=== PATIENT | female | born 1995 | race Caucasian/White ===

== ENCOUNTER 2017-02-06 00:23 | Emergency (ER) | payer OTHER ==
[2017-02-06] MEDS ORDERED: Acetaminophen ADULT LIQ* 650 MG/20.3 ML UDC PO ONE (01:22)
[2017-02-06] MEDS ORDERED: Amoxicillin SUSP* 400 MG/5 ML ORAL.SOLN 50 ML BTL PO ONE (01:22)
--- NOTE | 2017-02-06 01:28 | ED ---
Throat Pain/Nasal Congestion - HPI Summary HPI Summary: 22F presents with right ear pain today. She states she woke up with the pain. She admits to sinus discharge. She is also complaining of a sore throat. She denies any cough, fever, abdominal pain. She has not taken anything for her pain and states it is a 10/10. She does not have a history of ear infections and she has not been on any antibiotics recently. - History of Current Complaint Chief Complaint: EDEarPain Time Seen by Provider: 02/06/17 01:01 - Allergies/Home Medications Allergies/Adverse Reactions: Allergies Allergy/AdvReac Type Severity Reaction Status Date / Time No Known Allergies Allergy Verified 02/06/17 00:32 PMH/Surg Hx/FS Hx/Imm Hx Endocrine/Hematology History: Denies: Hx Anticoagulant Therapy Psychiatric History: Reports: Hx Anxiety, Hx Depression Infectious Disease History: No Infectious Disease History: Denies: Traveled Outside the [place] in Last 30 Days - Family History Known Family History: Positive: Other - dad- CVA; arthritis; mom- cancer - breast, uterine, ovarian - Social History Alcohol Use: Weekly Hx Substance Use: Yes - "pills", cocaine, meth, marijuana Substance Use Type: Reports: None Smoking Status (MU): Current Every Day Smoker Review of Systems Negative: Fever Positive: Sore Throat, Ear Ache, Nasal Discharge Negative: Chest Pain Negative: Shortness Of Breath, Cough Negative: Abdominal Pain All Other Systems Reviewed And Are Negative: Yes Physical Exam Triage Information Reviewed: Yes Vital Signs On Initial Exam: Initial Vitals Temp Pulse Resp BP Pulse Ox 99.3 F 119 20 117/81 99 02/06/17 00:28 02/06/17 00:28 02/06/17 00:28 02/06/17 00:02/06/17 00:28 Vital Signs Reviewed: Yes Appearance: Positive: Pain Distress Skin: Positive: Warm, Dry Head/Face: Positive: Normal Head/Face Inspection Eyes: Positive: Normal, Conjunctiva Clear ENT: Positive: Pharynx normal, TM bulging - right, TM red - right, Other - uvula midline, soft palate rises symmetrically. Negative: Trismus Neck: Positive: Supple, Nontender, No Lymphadenopathy Respiratory/Lung Sounds: Positive: Clear to Auscultation, Breath Sounds Present Cardiovascular: Positive: Normal, RRR Diagnostics - Vital Signs Vital Signs Temp Pulse Resp BP Pulse Ox 02/06/17 01:22 98.1 F 60 18 132/88 02/06/17 00:28 99.3 F 119 20 117/81 99 - Laboratory Lab Statement: Any lab studies that have been ordered have been reviewed, and results considered in the medical decision making process. EENT Course/Dx - Course Course Of Treatment: 22F presents with right ear pain starting this night. denies any fever. no history of ear infection. also complain of sore throat. on exam TM bulging and red in right ear. throat looks normal, had tonsils removed. will treat with amoxicillin. patient understands and agrees with plan - Differential Diagnoses Differential Diagnoses: Otitis Externa, Otitis Media, Pharyngitis - Diagnoses Provider Diagnoses: Otitis media Discharge - Discharge Plan Condition: Stable Disposition: HOME Prescriptions: Amoxicillin SUSP 250 MG* [Amoxicillin SUSP *] 500 mg PO BID #190 ml Patient Education Materials: Otitis Media (ED) Referrals: [facility] PHYSICIAN REFERRAL [Outside] Additional Instructions: Take 10 ml (2 teaspoons) twice a day for 10 days, first dose given in ED Take Tylenol or ibuprofen every 6 hours for pain Establish care with primary care physician Return to ED if develop any new or worsening symptoms
[2017-02-06 01:39] VITALS: BP 107/74
== END 2017-02-06 01:35 | disposition home or self-care (01) ==
LOC: ED 00:23
DX: H66.91 Otitis media, unspecified, right ear (principal); F41.9 Anxiety disorder, unspecified; F32.9 Major depressive disorder, single episode, unspecified; F17.200 Nicotine dependence, unspecified, uncomplicated
CPT/HCPCS: 99282; A9270-GY

== ENCOUNTER 2017-06-28 14:26 | Emergency (ER) | payer OTHER ==
[2017-06-28] MEDS ORDERED: NS 0.9% 1000 ML* 1,000 ML IV ONE (15:45)
[2017-06-28 16:31] LABS: Hematocrit 34 % (35-47); Hemoglobin 11.5 g/dl (12.0-16.0); Mean Corpuscular HGB Conc 34 g/dl (31-36); Mean Corpuscular Hemoglobin 30 pg (27-31); Mean Corpuscular Volume 87 fL (80-97); Mean Platelet Volume 8 um3 (7.4-10.4); Red Blood Count 3.89 10^6/ul (4.0-5.4); Red Cell Distribution Width 14 % (10.5-15); White Blood Count 8.9 10^3/ul (3.5-10.8)
[2017-06-28 16:35] LABS: Urine Bilirubin Negative (Negative); Urine Glucose Negative (Negative); Urine Nitrite Negative (Negative)
[2017-06-28 16:46] LABS: Albumin 3.8 g/dL (3.2-5.2); BUN/Creatinine Ratio 17.4 (8-20); EGFR African American 216.5 (>60); EGFR Non-African American 168.3 (>60); Globulin 2.6 g/dL (2-4); Potassium 3.6 mmol/L (3.5-5.0); Total Bilirubin 0.2 mg/dL (0.2-1.0); Total Protein 6.4 g/dL (6.4-8.9)
[2017-06-28 17:39] VITALS: BP 102/64
--- NOTE | 2017-06-28 17:51 | RAD ---
Indication: Lower abdominal cramping. Early unknown dates. Comparison: No relevant prior exams available on the [facility] PACS for comparison. Technique: Transabdominal obstetrical ultrasound. Report: Single intrauterine gestation with 6.49 cm crown-rump length corresponding to 12 weeks 6 days gestation with normal movement and cardiac activity with heart rate measuring 167 bpm. Anterior placenta without suspicious finding. No perigestational hemorrhage evident. Unremarkable 2.5 x 1.5 x 2.2 cm RIGHT and 2.5 x 1.6 x 1.5 cm LEFT maternal ovaries. No extraovarian adnexal region lesions evident. Negative for free pelvic fluid. IMPRESSION: Viable-appearing single intrauterine gestation with estimated gestational age of 12 weeks 6 days based on crown-rump length corresponding with LUTHER (AUA) of January 04, 2018.
--- NOTE | 2017-06-28 18:11 | ED ---
Tanya Patel SooYoung, scribed for Alejandro Harris MD on 06/28/17 at 1526 . 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 Pain is described as intermittent cramping, pressure. A6. She states she has prev miscarried within the first two months. The longest term prior to this one was 8 weeks and 6 days. Denies fever, chills, vaginal discharge, vaginal bleeding. - History of Current Complaint Chief Complaint: EDAbdPain Stated Complaint: 13 WEEKS PRE CRAMPS Time Seen by Provider: 06/28/17 15:14 Hx Obtained From: Patient Onset/Duration: Sudden Onset, Still Present Timing: Constant Severity Initially: Moderate Severity Currently: Moderate Pain Intensity: 7 Pain Scale Used: 0-10 Numeric Location: Suprapubic Associated Signs and Symptoms: Negative: Fever, Vaginal Bleeding, Vaginal Discharge, Other: - neg: chills Allergies/Adverse Reactions: Allergies Allergy/AdvReac Type Severity Reaction Status Date / Time No Known Allergies Allergy Verified 06/28/17 15:13 PMH/Surg Hx/FS Hx/Imm Hx Previously Healthy: No Endocrine/Hematology History: Denies: Hx Anticoagulant Therapy Psychiatric History: Reports: Hx Anxiety, Hx Depression Infectious Disease History: No Infectious Disease History: Denies: Traveled Outside the [place] in Last 30 Days - Family History Known Family History: Positive: Other - dad- CVA; arthritis; mom- cancer - breast, uterine, ovarian - Social History Occupation: Unemployed - OTHER Lives: With Family Alcohol Use: Weekly Hx Substance Use: Yes - "pills", cocaine, meth, marijuana Substance Use Type: Reports: Cocaine, Marijuana, Other - meth, pills Hx Tobacco Use: Yes Smoking Status (MU): Current Every Day Smoker Review of Systems Negative: Fever, Chills Positive: Abdominal Pain Negative: discharge - neg: vaginal discharge, bleeding All Other Systems Reviewed And Are Negative: Yes Physical Exam - Summary Physical Exam Summary: VITAL SIGNS: Reviewed. GENERAL: Patient is a well-developed and nourished female who is lying comfortable in the stretcher. Patient is not in any acute respiratory distress. HEAD AND FACE: Normocephalic and atraumatic. EYES: PERRLA, EOMI x 2, No injected conjunctiva. EARS: Hearing grossly intact. Ear canals and tympanic membranes are WNL. MOUTH: Oropharynx within normal limits. NECK: Supple, trachea is midline, no adenopathy, no JVD. CHEST: Symmetric, no tenderness at palpation LUNGS: Clear to auscultation bilaterally. No wheezing or crackles. CVS: RRR, S1 and S2 present, no murmurs or gallops appreciated. ABDOMEN: Soft, non-tender. No signs of distention. Positive bowel sounds. No rebound, no guarding, and no masses palpated. No abdominal bruit or pulsations. EXTREMITIES: FROM in all major joints, no edema, no cyanosis or clubbing. NEURO: Alert and oriented x 3. No acute neurological deficits. Speech is normal. SKIN: Dry and warm Triage Information Reviewed: Yes Vital Signs On Initial Exam: Initial Vitals Temp Pulse Resp BP Pulse Ox 98.2 F 99 12 115/60 100 06/28/17 14:32 06/28/17 14:32 06/28/17 14:32 06/28/17 14:32 06/28/17 14:32 Vital Signs Reviewed: Yes - [place] Coma Scale Coma Scale Total: 15 Diagnostics - Vital Signs Vital Signs Temp Pulse Resp BP Pulse Ox 06/28/17 14:32 98.2 F 99 12 115/60 100 - Laboratory Lab Results: Lab Results 06/28/17 06/28/17 06/28/17 Range/Units 16:15 16:15 16:15 WBC 8.9 (3.5-10.8) 10^3/ul RBC 3.89 L (4.0-5.4) 10^6/ul Hgb 11.5 L (12.0-16.0) g/dl Hct 34 L (35-47) % MCV 87 (80-97) fL MCH 30 (27-31) pg MCHC 34 (31-36) g/dl RDW 14 (10.5-15) % Plt Count 195 (150-450) 10^3/ul MPV 8 (7.4-10.4) um3 Neut % (Auto) 71.6 (38-83) % Lymph % (Auto) 17.9 L (25-47) % [place] % (Auto) 6.4 (1-9) % Eos % (Auto) 3.8 (0-6) % Baso % (Auto) 0.3 (0-2) % Absolute Neuts (auto) 6.4 (1.5-7.7) 10^3/ul Absolute Lymphs (auto) 1.6 (1.0-4.8) 10^3/ul Absolute Monos (auto) 0.6 (0-0.8) 10^3/ul Absolute Eos (auto) 0.3 (0-0.6) 10^3/ul Absolute Basos (auto) 0 (0-0.2) 10^3/ul Absolute Nucleated RBC 0 10^3/ul Nucleated RBC % 0 Sodium 134 (133-145) mmol/L Potassium 3.6 (3.5-5.0) mmol/L Chloride 106 (101-111) mmol/L Carbon Dioxide 21 L (22-32) mmol/L Anion Gap 7 (2-11) mmol/L BUN 8 (6-24) mg/dL Creatinine 0.46 L (0.51-0.95) mg/dL Est GFR ( Amer) 216.5 (>60) Est GFR (Non-Af Amer) 168.3 (>60) BUN/Creatinine Ratio 17.4 (8-20) Glucose 74 (70-100) mg/dL Calcium 9.0 (8.6-10.3) mg/dL Total Bilirubin 0.20 (0.2-1.0) mg/dL AST 17 (13-39) U/L ALT 9 (7-52) U/L Alkaline Phosphatase 41 (34-104) U/L Total Protein 6.4 (6.4-8.9) g/dL Albumin 3.8 (3.2-5.2) g/dL Globulin 2.6 (2-4) g/dL Albumin/Globulin Ratio 1.5 (1-3) Beta HCG, Quant 95806.00 mIU/mL Urine Color Straw Urine Appearance Clear Urine pH 7.0 (5-9) Ur Specific [place] 1.006 L (1.010-1.030) Urine Protein Negative (Negative) Urine Ketones 1+ H (Negative) Urine Blood Negative (Negative) Urine Nitrate Negative (Negative) Urine Bilirubin Negative (Negative) Urine Urobilinogen Negative (Negative) Ur Leukocyte Esterase Negative (Negative) Urine Glucose Negative (Negative) Result Diagrams: 06/28/17 16:15 06/28/17 16:15 Lab Statement: Any lab studies that have been ordered have been reviewed, and results considered in the medical decision making process. - Ultrasound No standard instances Ultrasound Interpretation: Positive (See Comments) - U/S, IMPRESSION: Viable-appearing single intrauterine gestation with estimated gestational age of 12 weeks 6 days based on crown-rump length corresponding with LUTHER (AUA) of January 04, 2018. ED physician has reviewed this radiology report and agrees Ultrasound Interpretation Completed By: Radiologist Re-Evaluation - Re-Evaluation 1 Re-Evaluation Time: 18:01 Change: Improved Comment: Discussing results with pt. Will consult with OB-METER RECORD CLERK. Abdominal Pain Fem Course/Dx - Course Course Of Treatment: A 22 y/o F who is 13 weeks presents to ED with c/ o suprapubic abd pain onset DEPOT MANAGER. Pain is described as intermittent cramping, pressure. A6. She states she has prev miscarried within the first two months. The longest term prior to this one was 8 weeks and 6 days. Denies fever, chills, vaginal discharge, vaginal bleeding. In the ED course an IV access was obtained. Patient was placed in a tobacco sampler. Patient was started with IV fluids. Labs within normal limits except for slight anemia. C. UA negative for UTI. Pelvic U/S IMPRESSION: Viable-appearing single intrauterine gestation with estimated gestational age of 12 weeks 6 days based on crown-rump length corresponding with LUTHER (AUA) of January 04, 2018. Patient has remained asymptomatic in the ED. I did not perform a pelvic exam nor ordered a Rh factor since patient had no vaginal bleeding. I discussed the case with Dr. Rod who agrees with management and recommends discharge home with F/u with Moses (TECHNOLOGY ADMINISTRATOR) in [place]. I discussed all the findings and test results with the patient. Patient was instructed to return to the emergency room immediately if any of the symptoms return or worsens. Plan of care was discussed with the patient and understands and agrees. All questions were answered at patient satisfaction. There were no further complaints or concerns. - Diagnoses Differential Diagnosis: Positive: Constipation, Ectopic , Ovarian Cyst , Provider Diagnoses: Threatened miscarriage - Provider Notifications Discussed Care Of Patient With: Laney Rod - OB-METER RECORD CLERK Time Discussed With Above Provider: 18:05 Instructed by Provider To: Other - Recommends pt be D/C and f/u with her OB-METER RECORD CLERK Discharge - Discharge Plan Condition: Stable Disposition: HOME Patient Education Materials: Threatened Miscarriage (ED) Referrals: No Primary Care Phys,NOPCP [Primary Care Provider] - [facility] [place] [facility]IAN REFERRAL [Outside] - 3 Days Additional Instructions: Establish and follow-up with a primary care provider in the next 3 days. Please return to the ED if you experience new or worsening symptoms. The documentation as recorded by the Tanya gloria SooYoung accurately reflects the service I personally performed and the decisions made by me, Alejandro Harris MD.
== END 2017-06-28 18:37 | disposition home or self-care (01) ==
LOC: ED 14:26
DX: O20.0 Threatened abortion (principal); Z3A.13 13 weeks gestation of pregnancy; O99.331 Smoking (tobacco) complicating pregnancy, first trimester
CPT/HCPCS: 36415; 76801; 80053; 81003; 84702; 85025; 96360; 99282

== ENCOUNTER 2018-05-28 17:24 | Emergency (ER) | payer OTHER ==
[2018-05-28] MEDS ORDERED: Ketorolac INJ* 60 MG/2 ML VIAL IM ONE (20:18)
[2018-05-28] MEDS ORDERED: predniSONE TAB* 10 MG PO ONE (20:25)
--- NOTE | 2018-05-28 21:16 | ED ---
Upper Extremity Pain - HPI Summary HPI Summary: 26-year-old female presents with bilateral wrist pain for the past month. She states she has carpal tunnel. States she is waiting for surgery for carpal tunnel surgery. She states she has been using an [id number] wrist splint that has not been helping. She was feels numbness and tingling in her fingers. No injury. No fevers. No rash. She states that the pain radiating to her elbow. she has been taking ibuprofen for pain. - History of Current Complaint Chief Complaint: EDExtremityUpper Stated Complaint: BILATERAL ARM PAIN Time Seen by Provider: 05/28/18 18:56 - Allergies/Home Medications Allergies/Adverse Reactions: Allergies Allergy/AdvReac Type Severity Reaction Status Date / Time No Known Allergies Allergy Verified 05/28/18 17:41 PMH/Surg Hx/FS Hx/Imm Hx Endocrine/Hematology History: Denies: Hx Anticoagulant Therapy Cardiovascular History: Denies: Hx Myocardial Infarction Psychiatric History: Reports: Hx Anxiety, Hx Depression Infectious Disease History: No Infectious Disease History: Denies: Traveled Outside the [place] in Last 30 Days - Family History Known Family History: Positive: Other - dad- CVA; arthritis; mom- cancer - breast, uterine, ovarian - Social History Alcohol Use: Occasionally Hx Substance Use: Yes - "pills", cocaine, meth, marijuana Substance Use Type: Reports: None Hx Tobacco Use: Yes Smoking Status (MU): Light Every Day Tobacco Smoker Review of Systems Negative: Fever Negative: Chest Pain Positive: Shortness Of Breath Positive: Myalgia - wrist pain All Other Systems Reviewed And Are Negative: Yes Physical Exam Triage Information Reviewed: Yes Vital Signs On Initial Exam: Initial Vitals Temp Pulse Resp BP Pulse Ox 97.9 F 103 16 120/79 100 05/28/18 17:37 05/28/18 17:37 05/28/18 17:37 05/28/18 17:37 05/28/18 17:37 Vital Signs Reviewed: Yes Appearance: Positive: Well-Appearing Skin: Positive: Warm, Dry Head/Face: Positive: Normal Head/Face Inspection Eyes: Positive: Normal, Conjunctiva Clear ENT: Positive: Pharynx normal Respiratory/Lung Sounds: Positive: Clear to Auscultation, Breath Sounds Present Cardiovascular: Positive: Normal, RRR Musculoskeletal: Positive: Strength/ROM Intact - wrist, Other - tenderness over palmar aspect of wrist bilateral, pos tinels, good pulses, capillary refill<2 secs, sensation grossly intact. Negative: Edema Left, Edema Right Neurological: Positive: Normal Psychiatric: Positive: Normal Diagnostics - Vital Signs Vital Signs Temp Pulse Resp BP Pulse Ox 05/28/18 17:37 97.9 F 103 16 120/79 100 - Laboratory Lab Statement: Any lab studies that have been ordered have been reviewed, and results considered in the medical decision making process. Course/Dx - Course Course Of Treatment: 26-year-old female presents with bilateral wrist pain for the past month. She states she has carpal tunnel. States she is waiting for surgery for carpal tunnel surgery. She states she has been using an over-the- counter wrist splint that has not been helping. She was feels numbness and tingling in her fingers. No injury. No fevers. No rash. She states that the pain radiating to her elbow. she has been taking ibuprofen for pain. On exam neurovascular intact. Full range of motion wrist. Positive Tinel's. Will try a short course of low-dose steroid. Will give prescription for wrist splints. We'll have follow-up with orthopedic. Patient understands agrees with plan. - Diagnoses Differential Diagnosis/HQI/PQRI: Positive: Strain, Sprain, Other - carpel tunnel Provider Diagnoses: Carpal tunnel syndrome Discharge - Sign-Out/Discharge Documenting (check all that apply): Patient Departure - Discharge Plan Condition: Good Disposition: HOME Prescriptions: predniSONE TAB* [Deltasone 20 MG TAB*] 20 mg PO DAILY #13 tab Patient Education Materials: Tendinitis (ED) Referrals: Rosey Biggs NP [Primary Care Provider] - Additional Instructions: Take Tylenol or ibuprofen every 6 hours as needed for pain take steroid once a day for 2 weeks Apply ice, rest, elevate use wrist splints Follow up with ortho Return to ED if develop any new or worsening symptoms - Billing Disposition and Condition Condition: GOOD Disposition: Home
[2018-05-28 22:13] VITALS: BP 119/83
== END 2018-05-28 22:10 | disposition home or self-care (01) ==
LOC: ED 17:24
DX: G56.03 Carpal tunnel syndrome, bilateral upper limbs (principal); F17.200 Nicotine dependence, unspecified, uncomplicated
CPT/HCPCS: 96372; 99282; J1885; J7512

== ENCOUNTER → 2018-09-14 17:23 | Emergency (ER) | payer OTHER ==
[~2018-09-14 17:23] MED LIST: Amoxicillin PO (*) 250 MG CAP PO ONE
--- NOTE | 2018-09-14 17:54 | ED ---
Respiratory - HPI Summary HPI Summary: Patient complains of productive cough 5 days. Denies fever, sore throat, PASCUAL, ear pain, CP, SOB, N/V/V abdominal pain, change in urine, change in BM. Medical history is none. - History of Current Complaint Chief Complaint: EDGeneral Stated Complaint: COUGH/CONGESTION Time Seen by Provider: 09/14/18 17:36 Hx Obtained From: Patient Onset/Duration: Gradual Onset, Lasting Days Initial Severity: Mild Current Severity: Mild Pain Intensity: 1 Character: Cough (Productive) Sputum Amount: Small Sputum Color: Yellow Aggravating Factor(s): Nothing Alleviating Factor(s): Nothing Associated Signs and Symptoms: Negative - Allergy/Home Medications Allergies/Adverse Reactions: Allergies Allergy/AdvReac Type Severity Reaction Status Date / Time No Known Allergies Allergy Verified 05/28/18 17:41 PMH/Surg Hx/FS Hx/Imm Hx Endocrine/Hematology History: Denies: Hx Anticoagulant Therapy Cardiovascular History: Denies: Hx Cardiac Arrest, Hx Myocardial Infarction History: Denies: Hx Dialysis Neurological History: Denies: Hx CVA Psychiatric History: Reports: Hx Anxiety, Hx Depression Infectious Disease History: No Infectious Disease History: Denies: Traveled Outside the [place] in Last 30 Days - Family History Known Family History: Positive: Other - dad- CVA; arthritis; mom- cancer - breast, uterine, ovarian - Social History Alcohol Use: Occasionally Hx Substance Use: Yes - "pills", cocaine, meth, marijuana Substance Use Type: Reports: None Hx Tobacco Use: Yes Smoking Status (MU): Light Every Day Tobacco Smoker Review of Systems Constitutional: Negative Eyes: Negative ENT: Negative Cardiovascular: Negative Positive: Cough Gastrointestinal: Negative Genitourinary: Negative Musculoskeletal: Negative Skin: Negative Neurological: Negative Psychological: Normal All Other Systems Reviewed And Are Negative: Yes Physical Exam Triage Information Reviewed: Yes Vital Signs On Initial Exam: Initial Vitals Temp Pulse Resp BP Pulse Ox 98.5 F 100 16 122/99 98 09/14/18 17:24 09/14/18 17:24 09/14/18 17:24 09/14/18 17:24 09/14/18 17:24 Vital Signs Reviewed: Yes Appearance: Positive: Well-Appearing Skin: Positive: Warm Head/Face: Positive: Normal Head/Face Inspection Eyes: Positive: Normal ENT: Positive: Normal ENT inspection Neck: Positive: Supple Respiratory/Lung Sounds: Positive: Clear to Auscultation Cardiovascular: Positive: Normal Abdomen Description: Positive: Nontender Musculoskeletal: Positive: Normal Neurological: Positive: Normal Psychiatric: Positive: Normal AVPU Assessment: Alert - [place] Coma Scale Best Eye Response: 4 - Spontaneous Best Motor Response: 6 - Obeys Commands Best Verbal Response: 5 - Oriented Coma Scale Total: 15 Diagnostics - Vital Signs Vital Signs Temp Pulse Resp BP Pulse Ox 09/14/18 17:24 98.5 F 100 16 122/99 98 - Laboratory Lab Statement: Any lab studies that have been ordered have been reviewed, and results considered in the medical decision making process. Disposition - Course Course Of Treatment: Patient complains of productive cough 5 days. Denies fever, sore throat, PASCUAL, ear pain, CP, SOB, N/V/V abdominal pain, change in urine , change in BM. Medical history is none. Physical exam unremarkable. Vital signs within normal limits and stable. Patient and her 8-month-old daughter has same symptoms. Rx for amoxicillin. - Diagnoses Provider Diagnoses: Cough Discharge - Sign-Out/Discharge Documenting (check all that apply): Patient Departure - Discharge Plan Condition: Stable Disposition: HOME Prescriptions: Amoxicillin 500 mg PO BID 7 Days #14 capsule Patient Education Materials: Acute Cough (ED) Referrals: Rosey Biggs NP [Primary Care Provider] - Additional Instructions: Take antibiotics as directed. Follow-up with primary care. Return to the ED for any new or worsening symptoms - Billing Disposition and Condition Condition: STABLE Disposition: Home
[2018-09-14 18:51] VITALS: BP 108/72
== END | disposition home or self-care (01) ==
LOC: ED 17:23
DX: R05 Cough (principal); F17.200 Nicotine dependence, unspecified, uncomplicated
CPT/HCPCS: 99282; A9270-GY

== ENCOUNTER 2019-04-03 09:00 | Emergency (ER) | payer OTHER ==
--- NOTE | 2019-04-03 09:25 | ED ---
Influenza-Like Illness - HPI Summary HPI Summary: Patient is a 24-year-old female who presents emergency department complaints of cough, sore throat and nasal congestion times several days. Patient's child was also present being seen for similar symptoms. Patient also notes ongoing nausea without abdominal pain, vomiting, diarrhea or urinary symptoms. Denies past medical history other than daily smoking. Symptoms are mild in severity. Patient denies history of asthma or lung problems states she occasionally his friend's inhaler. Symptoms are mild in severity. No current modifying factors. - History of Current Complaint Chief Complaint: EDFluSymptoms Time Seen by Provider: 04/03/19 09:21 Hx Obtained From: Patient - Allergy/Home Medications Allergies/Adverse Reactions: Allergies Allergy/AdvReac Type Severity Reaction Status Date / Time No Known Allergies Allergy Verified 04/03/19 09:21 PMH/Surg Hx/FS Hx/Imm Hx Previously Healthy: Yes Endocrine/Hematology History: Denies: Hx Anticoagulant Therapy Cardiovascular History: Denies: Hx Cardiac Arrest, Hx Myocardial Infarction History: Denies: Hx Dialysis Neurological History: Denies: Hx CVA Psychiatric History: Reports: Hx Anxiety, Hx Depression Infectious Disease History: No Infectious Disease History: Denies: Traveled Outside the [place] in Last 30 Days - Family History Known Family History: Positive: Other - dad- CVA; arthritis; mom- cancer - breast, uterine, ovarian, Non-Contributory - Social History Occupation: Unemployed Lives: With Family Alcohol Use: Rare Hx Substance Use: Yes - "pills", cocaine, meth, marijuana Substance Use Type: Reports: None Hx Tobacco Use: Yes Smoking Status (MU): Light Every Day Tobacco Smoker Review of Systems Constitutional: Negative Negative: Fever, Chills Eyes: Negative Positive: Sore Throat, Nasal Discharge Cardiovascular: Negative Negative: Palpitations, Chest Pain Positive: Shortness Of Breath, Cough Positive: Nausea. Negative: Abdominal Pain, Vomiting, Diarrhea Genitourinary: Negative Negative: dysuria Skin: Negative Negative: Rash Neurological: Negative All Other Systems Reviewed And Are Negative: Yes Physical Exam Triage Information Reviewed: Yes Vital Signs On Initial Exam: Initial Vitals Temp Pulse Resp BP Pulse Ox 100.1 F 125 16 137/89 98 04/03/19 09:04 04/03/19 09:04 04/03/19 09:04 04/03/19 09:04 04/03/19 09:04 Vital Signs Reviewed: Yes Appearance: Positive: Well-Appearing - Pt. sitting on bed in NAD. Child present. Skin: Positive: Warm, Dry Head/Face: Positive: Normal Head/Face Inspection Eyes: Positive: Normal, EOMI, AISHA, Conjunctiva Clear ENT: Positive: Pharynx normal, TMs normal. Negative: Tonsillar swelling, Tonsillar exudate Neck: Positive: Supple, Nontender. Negative: Nuchal Rigidity Respiratory/Lung Sounds: Positive: Other - Mild diffuse wheeze and rhonchi throughout. No stridor, retractions or accessory muscle use. Cardiovascular: Positive: Normal, RRR Musculoskeletal: Positive: Normal, Strength/ROM Intact Neurological: Positive: Normal, CN Intact II-III Psychiatric: Positive: Affect/Mood Appropriate Diagnostics - Vital Signs Vital Signs Temp Pulse Resp BP Pulse Ox 04/03/19 09:04 100.1 F 125 16 137/89 98 - Laboratory Lab Statement: Any lab studies that have been ordered have been reviewed, and results considered in the medical decision making process. Flu Symptom Course/Dx - Course Course Of Treatment: Pt. presenting with above symptoms. Low grade fever. HR initially elevated which improved. O2 saturation 98% on RA. Pt. given breath treatment with improvement. CXR shows signs of COPD without infiltrate per radiology. Will treat for bronchitis with zithromax, prednisone, and albuterol. Advised to quit smoking. Will f.u with PCP and return if sxs change or worsen. Pt. understands and agrees with plan. - Diagnoses Provider Diagnoses: Bronchitis Discharge - Sign-Out/Discharge Documenting (check all that apply): Patient Departure Patient Received Moderate/Deep Sedation with Procedure: No - Discharge Plan Condition: Improved Disposition: HOME Prescriptions: Albuterol HFA INHALER* [Ventolin HFA Inhaler*] 1 - 2 puff INH Q6H PRN #1 mdi PRN Reason: Wheezing Azithromyxin DUNIA (NF) [Z-Dunia (Zithromax) 250 mg tabs #6] 2 tab PO .TODAY, THEN 1 DAILY #6 tab predniSONE TAB* [Deltasone 20 MG TAB*] 40 mg PO DAILY #10 tab Patient Education Materials: Acute Bronchitis (ED) Referrals: [facility] [Outside] [facility] [Outside] Additional Instructions: Schedule follow up with PCP Medication as directed Avoid smoking Increase fluids and rest Return to ER if symptoms change or worsen - Billing Disposition and Condition Condition: IMPROVED Disposition: Home
[2019-04-03] MEDS ORDERED: Albuterol 2.5 MG/3 ML NEB.SOL* (0.083%) INH ONE (09:52)
[2019-04-03 12:31] VITALS: BP 107/79
== END 2019-04-03 12:30 | disposition home or self-care (01) ==
LOC: ED 09:00
DX: J40 Bronchitis, not specified as acute or chronic (principal); J02.9 Acute pharyngitis, unspecified; R11.0 Nausea; F17.200 Nicotine dependence, unspecified, uncomplicated
CPT/HCPCS: 36415; 71046; 84702; 99282